=== PATIENT | male | born 1990 | race Caucasian/White ===

== ENCOUNTER 2018-05-11 16:15 | Emergency (ER) | payer MEDICAID | END 2018-05-11 16:46 | disposition left against medical advice (07) | LOC: E/R 16:15 | DX: F41.9 Anxiety disorder, unspecified (principal); F15.10 Other stimulant abuse, uncomplicated; F31.11 Bipolar disorder, current episode manic without psychotic features, mild; Z87.891 Personal history of nicotine dependence | CPT/HCPCS: 99283 ==